=== PATIENT | female | born 1995 | race Caucasian/White ===

== ENCOUNTER 2022-10-02 19:16 | Emergency (ER) | payer MEDICAID, OTHER | END 2022-10-02 20:20 | disposition home or self-care (01) | LOC: JP.ED 19:16 | DX: R07.89 Other chest pain (principal); F41.9 Anxiety disorder, unspecified; R00.2 Palpitations; Z88.8 Allergy status to other drugs, medicaments and biological substances; Z88.0 Allergy status to penicillin; Z88.1 Allergy status to other antibiotic agents; Z88.5 Allergy status to narcotic agent; Z72.0 Tobacco use | CPT/HCPCS: 99283; 99284 ==